=== PATIENT | female | born 1980 ===

== ENCOUNTER → 2023-08-06 09:13 | Outpatient (CLI) | payer OTHER, SELFPAY ==
--- NOTE | 2023-08-06 09:58 | DI.MRI.S_ITS ---
PROCEDURE: MRFOOT LT WO CON INDICATIONS: LEFT FOOT PAIN TECHNIQUE: Multiphasic, multisequence MRI of the forefoot was performed, without intravenous contrast administration. COMPARISON: [facility], CR, XR FOOT 3+ VIEWS LEFT, 07/10/2023, 8:03. FINDINGS: Image quality: Excellent. Bones and joints: Small marginal erosion in the medial aspect of the 1st metatarsal head, nonspecific but can be seen in setting of gout. No acute fracture. Soft tissues: Muscle signal within the forefoot is unremarkable. No muscle edema or fatty atrophy. The flexor, in the extensor tendon are unremarkable. Susceptibility artifact about the medial aspect of the navicular bone, which may represent prior postprocedure changes. The Lisfranc ligament is intact. Sinus tarsi: No fibrosis. Visualized plantar fascia: Unremarkable. IMPRESSION: 1. Small marginal erosion in the medial aspect of 1st metatarsal head, raising concern for gout. Recommend clinical correlation. 2. Susceptibility artifact about the medial aspect of the navicular bone, which may be secondary to prior postprocedure changes. Recommend clinical correlation. Dictated by: Krista Kaufman M.D. on 08/06/2023 at 19:27 Approved by: Krista Kaufman M.D. on 08/06/2023 at 19:34
== END ==
PROVIDERS: PCP Physician Assistant; Referring Provider Podiatrist; Visit Provider Podiatrist
DX: M79.672 Pain in left foot (principal)
CPT/HCPCS: 73718